=== PATIENT | female | born 1945 | race Caucasian/White ===

== ENCOUNTER 2021-12-08 12:45 | Emergency (ER) | payer OTHER ==
[~2021-12-08] VITALS: Ht 172.7 cm; Wt 78.5 kg
[2021-12-08] MEDS ORDERED: IV NORMAL SALINE 1000 ML BAG IV ONE (13:00)
[2021-12-08 13:05] LABS: HEMATOCRIT 42.7 % (31.2-41.9); MEAN CORPUSCULAR HEMOGLOBIN 31.9 uug (24.7-32.8); MEAN CORPUSCULAR VOLUME 94.7 fL (75.5-95.3); PLATELET COUNT (AUTO) 244 K/uL (179-408)
--- NOTE | 2021-12-08 13:13 | NUR ---
PT IS IN ROOM #1B. DR ELLSWORTH EVALUATED THE PT.
[2021-12-08 13:15] LABS: CREATININE 0.6 mg/dL (0.6-1.3); POTASSIUM 4.3 mmol/L (3.5-5.1)
[2021-12-08 13:21] LABS: BILIRUBIN,DIRECT 0.1 mg/dL (0.0-0.2); BILIRUBIN,TOTAL 0.2 mg/dL (0.2-1.0); TOTAL PROTEIN, SERUM 7.2 g/dL (6.4-8.2)
--- NOTE | 2021-12-08 13:55 | NUR ---
Pt has been agitated and yelling out loud constantly. Multiple staff members have spoken with the pt and re-oriented her. spoke with the pt and explained the plan of care as well. Pt keeps yelling out that she wants to go home. It was explained to the pt multiple times that her blood alcohol level is high and it is not safe to d/c at this time. Pt spoke with ER staff earlier via telephone. Pt medicated with Ativan 1mg IVP as ordered by . Pt is in room 1B and under direct observation by ER staff from the nursing station.
[2021-12-08] MEDS ORDERED: LORAZEPAM 2 MG/1 ML VIAL ONE ×3 (13:59→16:54)
[2021-12-08] MEDS ORDERED: LORAZEPAM 2 MG/1 ML VIAL IV ONE ×3 (14:00→16:45)
--- NOTE | 2021-12-08 14:40 | NUR ---
Pt is still agitated and yelling out loud, medicated with second dose of Ativan 1mg IVP as ordered by . Pt is on cont equipment monitor phototypesetting and pulse ox and under direct observation from nursing station.
--- NOTE | 2021-12-08 15:10 | NUR ---
Pt is resting in gurney with eyes closed at this time, NAD noted.
--- NOTE | 2021-12-08 15:34 | NUR ---
Clinical Social Work Note SW attempted to meet with patient to provide alcohol abuse referrals, but was unsuccessful. Patient was screaming and not cooperative. SW left patient substance use referrals in patient's chart. SANIYA called patient's Chas Kat ([phone]) to discuss care of plan. Mr. Kat stated that he can not transfer patient himself to [place] because she will not go voluntary with him. Mr. Kat requested that patient be transferred to [place] ED since he can not care for her at home. SANIYA informed Mr. Kat that he will inform doctor of his request and ED nursing will follow up with him. SANIYA spoke with RN Floridalma, and informed him of Mr. Kat request. SANIYA asked Floridalma to inform doctor of transfer request since doctor was not present at the time.
--- NOTE | 2021-12-08 16:50 | NUR ---
Pt was medicated with Ativan 2mg IVP for agitation and yelling out loud. Pt spoke with her via telephone per her request. spoke with [facility] via telephone, [facility] to call back with further transfer information.
--- NOTE | 2021-12-08 17:30 | NUR ---
Transfer info per [place] [facility]: Facility: [facility] Dr. Gilmer Negron accepting [facility] with sweet pickled fruit maker eta [id number] Call [phone] for report
--- NOTE | 2021-12-08 17:50 | NUR ---
SBAR report given via telephone to [place] at [facility] ([phone]).
[2021-12-08] MEDS ORDERED: KETAMINE HCL 500 MG/10 ML INJ IV ONE (18:45)
[2021-12-08] MEDS ORDERED: KETAMINE HCL 500 MG/10 ML INJ ONE (18:54)
--- NOTE | 2021-12-08 18:59 | NUR ---
Report given to night supervisor, pend trans to [facility].
--- NOTE | 2021-12-08 19:20 | NUR ---
Patient Tranfers to outside Facility, hot die picker by ambulance, accompanied by 2 paramedcis via gurney. Physician: Dr Gilmer Negron Location:[facility]
== END 2021-12-08 19:20 | disposition short-term general hospital (02) ==
LOC: EDBD 12:45 → ER 12:45
DX: F10.129 Alcohol abuse with intoxication, unspecified (principal); Y90.8 Blood alcohol level of 240 mg/100 ml or more; R03.0 Elevated blood-pressure reading, without diagnosis of hypertension; R45.1 Restlessness and agitation; Z85.9 Personal history of malignant neoplasm, unspecified; Z59.9 Problem related to housing and economic circumstances, unspecified; Z20.822 Contact with and (suspected) exposure to COVID-19
CPT/HCPCS: 36415; 71045; 73660; 80048; 80076; 80320; 85025; 87426; 93005; 96361; 96374; 96375; 96376; 99285; J2060 ×3; J3490; A4663; G0480; J7030

== ENCOUNTER 2024-02-06 16:38 | Emergency (ER) | payer OTHER ==
[~2024-02-06] VITALS: Ht 172.7 cm; Wt 72.6 kg
[2024-02-06] MEDS: IV NORMAL SALINE 1000 ML BAG IV ONE (17:13)
[2024-02-06 17:58] LABS: AMMONIA 13 umol/L (11-32)
[2024-02-06 18:02] LABS: ALANINE AMINOTRANSFERASE 71 U/L (14-59); ALBUMIN 3.5 g/dL (3.4-5.0); ALKALINE PHOSPHATASE 112 U/L (50-136); ASPARTATE AMINOTRANSFERASE 78 U/L (15-37); BILIRUBIN,DIRECT 0.2 mg/dL (0.0-0.2); BILIRUBIN,TOTAL 0.5 mg/dL (0.2-1.0); CALCIUM 8.7 mg/dL (8.5-10.1); CARBON DIOXIDE 27 mmol/L (21-32); CHLORIDE 103 mmol/L (98-107); CREATININE 0.5 mg/dL (0.6-1.3); GLUCOSE 91 mg/dL (74-106); POTASSIUM 3.8 mmol/L (3.5-5.1); SODIUM SERUM 142 mmol/L (136-145); TOTAL PROTEIN, SERUM 7.7 g/dL (6.4-8.2); UREA NITROGEN, BLOOD 9 mg/dL (7-18)
[2024-02-06] MEDS ORDERED: OLANZAPINE 10 MG VIAL IM ONE (18:11)
[2024-02-06] MEDS ORDERED: diphenhydrAMINE 50 MG/1 ML VIAL ONE (18:12)
[2024-02-06] MEDS: OLANZAPINE 10 MG VIAL IM ONE (18:17)
[2024-02-06] MEDS: diphenhydrAMINE 50 MG/1 ML VIAL IV ONE (18:17)
[2024-02-06 18:25] LABS: BASOPHILS # (AUTO) 0.1 K/UL (0.0-0.2); BASOPHILS % (AUTO) 1.5 % (0.0-2.0); EOSINOPHILS # (AUTO) 0.1 K/uL (0.0-0.7); EOSINOPHILS % (AUTO) 1.2 % (0.0-7.0); HEMATOCRIT 44.5 % (31.2-41.9); HEMOGLOBIN 15.1 g/dL (10.9-14.3); LYMPHOCYTES # (AUTO) 1.3 K/uL (0.8-4.8); MEAN CORPUSCULAR HGB CONC 34 g/dL (32.3-35.6); MEAN CORPUSCULAR VOLUME 97.3 fL (75.5-95.3); MONOCYTES # (AUTO) 0.5 K/uL (0.1-1.30); MONOCYTES % (AUTO) 9.3 % (0.0-11.0); NEUTROPHILS # (AUTO) 3.6 K/uL (1.8-8.9); PLATELET COUNT (AUTO) 228 K/uL (179-408); RED BLOOD CELL COUNT(AUTO) 4.58 MIL/uL (3.63-4.92); RED CELL DISTRIBUTION WIDTH 15.1 % (12.3-17.7); WHITE BLOOD COUNT (AUTO) 5.6 K/uL (3.8-11.8)
[2024-02-06 18:28] LABS: LACTIC ACID 2.4 mmol/L (0.4-2.0)
[2024-02-06 18:35] LABS: DIFFERENTIAL COMMENT 1
[2024-02-06 18:42] LABS: ETHANOL 285 MG/DL (0-10)
[2024-02-06 18:46] LABS: ACETAMINOPHEN < 2.0 ug/mL (10-30)
[2024-02-06] MEDS ORDERED: MIDAZOLAM HCL 2 MG/2 ML VIAL ONE (19:39)
[2024-02-06] MEDS: MIDAZOLAM HCL 2 MG/2 ML VIAL IV ONE (19:48)
[2024-02-06] MEDS ORDERED: LORAZEPAM 0.5 MG TABLET ONE (20:44)
[2024-02-06] MEDS ORDERED: ONDANSETRON ODT 4 MG TAB.RAPDIS ONE (20:44)
[2024-02-06] MEDS: LORAZEPAM 0.5 MG TABLET PO ONE (20:49)
[2024-02-06] MEDS: ONDANSETRON ODT 4 MG TAB.RAPDIS SL ONE (20:49)
[2024-02-06 23:02] VITALS: O2SAT 96
[2024-02-06] MEDS ORDERED: LORAZEPAM 2 MG/1 ML VIAL ONE (23:19)
[2024-02-06] MEDS: LORAZEPAM 2 MG/1 ML VIAL IV ONE (23:21)
== END 2024-02-07 00:16 | disposition short-term general hospital (02) ==
LOC: ER 16:40
DX: E05.00 Thyrotoxicosis with diffuse goiter without thyrotoxic crisis or storm (principal); F10.10 Alcohol abuse, uncomplicated; R45.1 Restlessness and agitation; Y90.0 Blood alcohol level of less than 20 mg/100 ml
CPT/HCPCS: 80076; 80048; 82140; 83735; 85025; 85730; 87040 ×2; 36415; 93005; 71045; 70450; 99285; 96361; 96374; 96375; 96372; 83605 ×2; 80299; 80320; J1200; J2060; J2250; J7040; A4606; A4663; G0480; J2358; Q0162

== ENCOUNTER 2025-03-18 18:40 | Emergency (ER) | payer OTHER ==
[~2025-03-18] VITALS: Ht 165.1 cm; Wt 74.8 kg
[2025-03-18 19:56] LABS: BASOPHILS # (AUTO) 0.1 K/UL (0.0-0.2); BASOPHILS % (AUTO) 0.8 % (0.0-2.0); EOSINOPHILS % (AUTO) 0.1 % (0.0-7.0); HEMATOCRIT 45.5 % (31.2-41.9); HEMOGLOBIN 14.8 g/dL (10.9-14.3); LYMPHOCYTES # (AUTO) 1.1 K/uL (0.8-4.8); LYMPHOCYTES % (AUTO) 8.5 % (20.5-51.5); MEAN CORPUSCULAR HEMOGLOBIN 32.9 uug (24.7-32.8); MEAN CORPUSCULAR HGB CONC 33 g/dL (32.3-35.6); MONOCYTES # (AUTO) 0.5 K/uL (0.1-1.30); MONOCYTES % (AUTO) 4.1 % (0.0-11.0); NEUTROPHILS # (AUTO) 11.3 K/uL (1.8-8.9); NEUTROPHILS % (AUTO) 86.5 % (38.5-71.5); PLATELET COUNT (AUTO) 298 K/uL (179-408); RED CELL DISTRIBUTION WIDTH 21.5 % (12.3-17.7); WHITE BLOOD COUNT (AUTO) 13.1 K/uL (3.8-11.8)
[2025-03-18 19:57] LABS: DIFFERENTIAL COMMENT 1
[2025-03-18 20:05] LABS: AMMONIA 13 umol/L (11-32)
[2025-03-18 20:09] LABS: ALANINE AMINOTRANSFERASE 31 U/L (14-59); ALBUMIN 3.9 g/dL (3.4-5.0); ALKALINE PHOSPHATASE 143 U/L (50-136); ASPARTATE AMINOTRANSFERASE 51 U/L (15-37); BILIRUBIN,DIRECT 0.1 mg/dL (0.0-0.2); BILIRUBIN,TOTAL 0.3 mg/dL (0.2-1.0); CALCIUM 8.7 mg/dL (8.5-10.1); CARBON DIOXIDE 22 mmol/L (21-32); CHLORIDE 101 mmol/L (98-107); CREATININE 0.7 mg/dL (0.6-1.3); GLUCOSE 130 mg/dL (74-106); POTASSIUM 3.6 mmol/L (3.5-5.1); SODIUM SERUM 141 mmol/L (136-145); TOTAL PROTEIN, SERUM 7.9 g/dL (6.4-8.2); UREA NITROGEN, BLOOD 4 mg/dL (7-18)
[2025-03-18] MEDS ORDERED: KETOROLAC TROMETHAMINE 15 MG INJ IVP ONE (20:15)
[2025-03-18] MEDS ORDERED: HYDROMORPHONE 1 MG/1 ML DISP.SYRIN ONE ×3 (20:24→22:46)
[2025-03-18] MEDS ORDERED: ONDANSETRON 4 MG/2 ML VIAL ONE (20:24)
[2025-03-18] MEDS: ONDANSETRON 4 MG/2 ML VIAL IV ONE (20:30)
[2025-03-18] MEDS: HYDROMORPHONE 1 MG/1 ML DISP.SYRIN IV ONE ×3 (20:30→22:50)
[2025-03-18 21:39] LABS: *BILIRUBIN,URIN NEGATIVE (NEGATIVE); *BLOOD, URINE 1+ (NEGATIVE); *CLARITY,URINE CLEAR (CLEAR); *COLOR,URINE YELLOW (YELLOW); *KETONES,URINE NEGATIVE (NEGATIVE); *PROTEIN,URINE 1+ (NEGATIVE); *UROBILINOGEN,URINE 0.2 E.U./dl (NORMAL); LEUKOCYTE ESTERASE ,URINE TRACE (NEGATIVE); NITRITE, URINE NEGATIVE (NEGATIVE); PH,URINE 5.5 (5.0-8.0); UGLUCOSE NEGATIVE (NEGATIVE)
[2025-03-18 21:46] LABS: *AMPHETAMINE, URINE NEGATIVE (NEGATIVE); *BARBITURATE, URINE NEGATIVE (NEGATIVE); *BENZODIAZEPINE, URINE NEGATIVE (NEGATIVE); *CANNABINOID, URINE NEGATIVE (NEGATIVE); *COCCAINE, URINE NEGATIVE (NEGATIVE); *OPIATE, URINE NEGATIVE (NEGATIVE); *PHENCYCLIDINE SCREEN,URINE NEGATIVE (NEGATIVE); FENTANYL, URINE NEGATIVE (NEGATIVE)
[2025-03-18 21:52] LABS: WBC,URINE 0-3 /HPF (0-3)
[2025-03-18 23:20] VITALS: O2SAT 94
[2025-03-19 00:55] LABS: ACETAMINOPHEN < 10.0 ug/mL (10-30)
[2025-03-19 00:57] LABS: LACTIC ACID 5.7 mmol/L (0.4-2.0)
== END 2025-03-18 23:25 | disposition short-term general hospital (02) ==
LOC: ER 18:40
DX: S72.092A Other fracture of head and neck of left femur, initial encounter for closed fracture (principal); F10.129 Alcohol abuse with intoxication, unspecified; I10 Essential (primary) hypertension; M54.2 Cervicalgia; R06.00 Dyspnea, unspecified; R07.9 Chest pain, unspecified; R51.9 Headache, unspecified; Z85.3 Personal history of malignant neoplasm of breast; W18.39XA Other fall on same level, initial encounter; Y93.89 Activity, other specified; Y92.89 Other specified places as the place of occurrence of the external cause; Y99.8 Other external cause status; Y90.7 Blood alcohol level of 200-239 mg/100 ml
CPT/HCPCS: 80076; 80048; 81001; 82140; 84443; 85025; 85730; 87040 ×2; 87086; 84484; 36415; 71045; 70450; 72125; 72192; 99285; 96374; 96375; 96376; 83605; 80299; 80320; 80307; J2405; J1171 ×3; A4606; A4663; G0480